=== PATIENT | male | born 1975 | race Caucasian/White ===

== ENCOUNTER 2017-07-23 16:20 | Emergency (ER) | payer OTHER ==
[2017-07-23 16:25] VITALS: BP 133/93; PULSE 85; TEMP 98.2; BMI 35.5
--- NOTE | 2017-07-23 16:25 | PDOC ---
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
[2017-07-23 16:43] LABS: PH,URINE 6.5 (5.0-8.0); URINE APPEARANCE CLEAR; URINE BILIRUBIN NEGATIVE (NEGATIVE); URINE BLOOD TRACE-LYSE (NEGATIVE); URINE COLOR LT. YELLOW; URINE GLUCOSE (UA) NEGATIVE (NEGATIVE); URINE KETONE NEGATIVE (NEGATIVE); URINE NITRITE NEGATIVE (NEGATIVE); URINE PROTEIN NEGATIVE (NEGATIVE); URINE UROBILINOGEN 0.2 mg/dL (0.2-1.0)
--- NOTE | 2017-07-23 17:25 | PDOC ---
History of Present Illness - General Chief Complaint: Back Pain Stated Complaint: PAIN, ACUTE Time Seen by Provider: 07/23/17 17:16 History Source: Patient Exam Limitations: No Limitations - History of Present Illness Initial Comments: 07/23/17 17:40 My chief complaint: left lateral lower back pain History of present illness: Patient is a 41-year-old male with no significant medical history here today Complaining of left lateral lower thoracic back pain that started yesterday after lifting something heavy at work and got worse today after stating something heavy at work. Patient denies any radiation of pain down the legs or any saddle anesthesia or weakness of legs or any foot drop or any incontinency. Patient did not take anything for pain today. Patient reports that pain is worse with lateral movement of the torso. Patient reports that pain currently is a 7 out of 10 aching in nature. Occurred: reports: yesterday Severity: reports: severe (left lateral back thoracic area ) Pain Location: reports: back (left lateral back lower thoracic ) Method of Injury: Yes: other (lifted something heavy at work ) Modifying Factors: improves with: None Loss of Consciousness: no loss of consciousness Associated Symptoms (Fall): other (left lateral back tenderness at lower thoracic level ) Past History - Past Medical History Allergies/Adverse Reactions: Allergies Allergy/AdvReac Type Severity Reaction Status Date / Time No Known Allergies Allergy Verified 07/23/17 16:21 COPD: No - Surgical History Appendectomy: Yes Cholecystectomy: Yes - Suicide/Smoking/Psychosocial Hx Smoking History: Current every day smoker Have you smoked in the past 12 months: Yes Number of Cigarettes Smoked Daily: 2 Information on smoking cessation initiated: Yes 'Breaking Loose' booklet given: 07/23/17 Hx Alcohol Use: No Drug/Substance Use Hx: No Substance Use Type: None Review of Systems - Review of Systems Able to Perform ROS?: Yes Constitutional: No: Symptoms Reported HEENTM: No: Symptoms Reported Respiratory: No: Symptoms reported Cardiac (ROS): No: Symptoms Reported ABD/GI: No: Symptoms Reported : No: Symptoms Reported Musculoskeletal: Yes: Back Pain (left lateral lower thoracic back tenderness ). No: Joint Swelling Integumentary: No: Symptoms Reported Neurological: No: Symptoms reported *Physical Exam - Vital Signs Last Vital Signs Temp Pulse Resp BP Pulse Ox 98.2 F 85 18 133/93 100 07/23/17 16:22 07/23/17 16:22 07/23/17 16:22 07/23/17 16:22 07/23/17 16:22 - Physical Exam General Appearance: Yes: Appropriately Dressed Respiratory/Chest: positive: Lungs Clear, Normal Breath Sounds. negative: Chest Tender, Respiratory Distress Cardiovascular: positive: Regular Rhythm, Regular Rate, S1, S2 Musculoskeletal: positive: Normal Inspection, Other (left lateral lower thoracic level tenderness). negative: CVA Tenderness, CVA Tenderness (R), CVA Tenderness (L), Decreased Range of Motion, Vertebral Tenderness Extremity: positive: Normal Capillary Refill, Normal Inspection, Normal Range of Motion Integumentary: positive: Normal Color Neurologic: positive: Alert, Normal Response, Motor Strength 5/5 (b/l legs ), Respond to painful stimul (b/l legs ), Responsive, Other (negative SLR b/l ). negative: Numbness, Sensory Deficit (b/l legs ) ED Treatment Course - ADDITIONAL ORDERS Additional order review: Laboratory Results 07/23/17 16:30 Urine Color Lt. yellow Urine Appearance Clear Urine pH 6.5 Ur Specific [place] 1.020 Urine Protein Negative Urine Glucose (UA) Negative Urine Ketones Negative Urine Blood Trace-lyse Urine Nitrite Negative Urine Bilirubin Negative Urine Urobilinogen 0.2 Medical Decision Making - Medical Decision Making 07/23/17 17:41 Patient is a 41-year-old male with no significant medical history here today Complaining of left lateral lower thoracic back pain that started yesterday after lifting something heavy at work and got worse today after stating something heavy at work. Patient denies any radiation of pain down the legs or any saddle anesthesia or weakness of legs or any foot drop or any incontinency. Patient did not take anything for pain today. Patient reports that pain is worse with lateral movement of the torso. Patient reports that pain currently is a 7 out of 10 aching in nature. Back pain left lateral lower thoracic area PLAN: toradol 60 mg IM now ibuprofen as directed by grocery clerk marking *DC/Admit/Observation/Transfer Diagnosis at time of Disposition: Left-sided back pain Qualifiers: Back pain location: thoracic back pain Chronicity: acute Qualified Code(s): M54.6 - Pain in thoracic spine - Discharge Dispostion Disposition: HOME Condition at time of disposition: Stable - Referrals Referrals: Kaushik Bautista MD [Staff Physician] - - Patient Instructions Additional Instructions: Follow-up with orthopedist of back pain continues Avoid lifting heavy items using your back use proper lifting technique as demonstrated in exam room Ibuprofen as needed as directed by grocery clerk marking for pain Return to emergency room if symptoms worsen any numbness of private area or legs or other symptoms develop Patient voiced understanding of discharge instructions and all questions were answered - Post Discharge Activity Forms/Work/School Notes: Back to Work
[2017-07-23] MEDS ORDERED: KETOROLAC TROMETHAMINE 60 MG/2 ML VIAL IM ONE (17:35)
[2017-07-23] MEDS ORDERED: KETOROLAC TROMETHAMINE 60 MG/2 ML VIAL ONE (17:40)
[2017-07-23 20:06] LABS: URINE LEUK ESTERASE Negative (NEGATIVE)
== END 2017-07-23 17:49 | disposition home or self-care (01) ==
LOC: JERFT 16:20
PROC: 3E0233Z Introduction of Anti-inflammatory into Muscle, Percutaneous Approach (ICD-10-PCS; principal; 2017-07-23)
DX: S29.8XXA Other specified injuries of thorax, initial encounter (principal); X50.0XXA Overexertion from strenuous movement or load, initial encounter; Y93.H3 Activity, building and construction; Y92.69 Other specified industrial and construction area as the place of occurrence of the external cause; Y99.0 Civilian activity done for income or pay
CPT/HCPCS: 81003; 96372; 99281-25

== ENCOUNTER 2018-08-28 08:51 | Emergency (ER) | payer OTHER ==
[2018-08-28 08:58] VITALS: BP 131/64; PULSE 61; TEMP 98.2; BMI 33.5
[2018-08-28] MEDS ORDERED: IBUPROFEN 600 MG TABLET (FP) PO ONE (10:03)
--- NOTE | 2018-08-28 10:08 | PDOC ---
History of Present Illness - History of Present Illness Initial Comments: The patient is a 42 year old male, with no significant PMH, who presents to the emergency department today complaining of intermittent right-sided testicular pain for 3 weeks. Patient reports he began experiencing intermittent testicular pain 3 weeks ago, without any specific trauma. Patient notes pain is exacerbated with palpation to the area, and ambulation occasionally triggers pain. He reports relief when taking Motrin. Patient states that his pain has gotten significantly worse the past two days, which prompted his visit to the ED today. The patient denies chest pain, shortness of breath, headache and dizziness. Denies fever, chills, nausea, vomit, diarrhea and constipation. Denies dysuria, frequency, urgency and hematuria. Allergies: NKA Past surgical history: Social history: No reported PCP: None reported 08/28/18 10:20 <Cierra Duran - Last Filed: 08/28/18 11:13> - General History Source: Patient Exam Limitations: No Limitations <Bill Macdonald - Last Filed: 08/28/18 12:17> - General Chief Complaint: Pain Stated Complaint: TESTICLE PAIN Time Seen by Provider: 08/28/18 09:20 Past History <Cierra Duran - Last Filed: 08/28/18 11:13> - Past Medical History COPD: No - Surgical History Appendectomy: Yes Cholecystectomy: Yes - Immunization History Immunization Up to Date: Yes - Suicide/Smoking/Psychosocial Hx Smoking History: Current every day smoker Have you smoked in the past 12 months: Yes Number of Cigarettes Smoked Daily: 1 Information on smoking cessation initiated: No 'Breaking Loose' booklet given: 07/23/17 Hx Alcohol Use: No Drug/Substance Use Hx: No Substance Use Type: None <Bill Macdonald - Last Filed: 08/28/18 12:17> - Past Medical History Allergies/Adverse Reactions: Allergies Allergy/AdvReac Type Severity Reaction Status Date / Time No Known Allergies Allergy Verified 08/28/18 08:54 Home Medications: Ambulatory Orders Ibuprofen 600 mg PO Q6H PRN #20 tablet 08/28/18 Review of Systems - Review of Systems Comments:: GENERAL/CONSTITUTIONAL: No fever or chills. No weakness. HEAD, EYES, EARS, NOSE AND THROAT: No change in vision. No ear pain or discharge. No sore throat. CARDIOVASCULAR: No chest pain or shortness of breath. RESPIRATORY: No cough, wheezing, or hemoptysis. GASTROINTESTINAL: No nausea, vomiting, diarrhea or constipation. GENITOURINARY: +Right-sided testicular pain. No dysuria, frequency, or change in urination. MUSCULOSKELETAL: No joint or muscle swelling or pain. No neck or back pain. SKIN: No rash NEUROLOGIC: No headache, vertigo, loss of consciousness, or change in strength/ sensation. ENDOCRINE: No increased thirst. No abnormal weight change. HEMATOLOGIC/LYMPHATIC: No anemia, easy bleeding, or history of blood clots. ALLERGIC/IMMUNOLOGIC: No hives or skin allergy. 08/28/18 10:20 <Cierra Duran - Last Filed: 08/28/18 11:13> *Physical Exam - Vital Signs Last Vital Signs Temp Pulse Resp BP Pulse Ox 98.2 F 61 16 131/64 98 08/28/18 08:55 08/28/18 08:55 08/28/18 08:55 08/28/18 08:55 08/28/18 08:55 - Physical Exam Comments: GENERAL: Awake, alert, and fully oriented, in no acute distress HEAD: No signs of trauma EYES: PERRLA, EOMI, sclera anicteric, conjunctiva clear ENT: Auricles normal inspection, hearing grossly normal, nares patent. Moist mucosa NECK: Normal ROM, supple, no lymphadenopathy, JVD, or masses ABDOMEN: Soft, nontender. No guarding, no rebound. No masses GENITOURINARY: +Uncircumsized penis with distended testicles. +Mild tenderness near the right epididymis. No penile lesions or rash. No drainage. No vesicular lesions. Cremasteric reflex intact. Vertical lie. EXTREMITIES: Normal range of motion, no edema. No clubbing or cyanosis. No cords, erythema, or tenderness NEUROLOGICAL: Cranial nerves II through XII grossly intact. Normal speech, normal gait SKIN: Warm, Dry, normal turgor, no rashes or lesions noted. 08/28/18 10:14 <Cierra Duran - Last Filed: 08/28/18 11:13> - Vital Signs Last Vital Signs Temp Pulse Resp BP Pulse Ox 98.2 F 61 16 131/64 98 08/28/18 08:55 08/28/18 08:55 08/28/18 08:55 08/28/18 08:55 08/28/18 08:55 <Bill Macdonald - Last Filed: 08/28/18 12:17> Moderate Sedation - Procedure Monitoring Vital Signs: Procedure Monitoring Vital Signs Temperature 98.2 F 08/28/18 08:55 Pulse Rate 61 08/28/18 08:55 Respiratory Rate 16 08/28/18 08:55 Blood Pressure 131/64 08/28/18 08:55 O2 Sat by Pulse Oximetry (%) 98 08/28/18 08:55 <Cierra Duran - Last Filed: 08/28/18 11:13> - Procedure Monitoring Vital Signs: Procedure Monitoring Vital Signs Temperature 98.2 F 08/28/18 08:55 Pulse Rate 61 08/28/18 08:55 Respiratory Rate 16 08/28/18 08:55 Blood Pressure 131/64 08/28/18 08:55 O2 Sat by Pulse Oximetry (%) 98 08/28/18 08:55 <Bill Macdonald - Last Filed: 08/28/18 12:17> ED Treatment Course - RADIOLOGY Radiograph Interpretation: EXAM#: TYPE/EXAM: RESULT: [id number] US/SCROTUM AND CONTENTS US HISTORY PROVIDED IMPRESSION: Small bilateral hydroceles and left-sided varicocele. No evidence of torsion or acute pathology. Reported By: Gus Blankenship MD 08/28/18 10:44 08/28/18 11:13 <Cierra Duran - Last Filed: 08/28/18 11:13> - RADIOLOGY Radiology Studies Ordered: Category Date Time Status SCROTUM AND CONTENTS US [US] Stat Ultrasound 08/28/18 10:03 Ordered <Bill Macdonald - Last Filed: 08/28/18 12:17> Medical Decision Making - Medical Decision Making 08/28/18 10:04 A portion of this note was written by my scribe, under my supervision. Vital Signs Temp Pulse Resp BP Pulse Ox 98.2 F 61 16 131/64 98 08/28/18 08:55 08/28/18 08:55 08/28/18 08:55 08/28/18 08:55 08/28/18 08:55 42 year old male c/ no PMH p/w right intermittent testicular pain x 3 weeks. The patient reported intermittent pain, worsened with palpation and occasionally ambulating worsens pain. Improved with motrin. However, last two days, has become increasingly gradually more worse. Denies abdominal pain, fevers, chills, dysuria, hematuria. The patient's physical exam demonstrates an uncircumsized male with no penile drainage or wounds or rashes, Right testicle with mild tenderness near the epidydmis, cremasteric reflex intact, and descended testicles. Will obtain ultrasound. I have low suspicion for torsion but do suspect epidymitis/orchitis. Pt is sexually active with only and no hx of STDs. Will obtain UA/UC and scrotal ultrasound. 08/28/18 11:46 UA: Urine Test Results Urine Color Dkyellow 08/28/18 11:12 Urine Appearance Clear 08/28/18 11:12 Urine pH 5.0 (5.0-8.0) D 08/28/18 11:12 Ur Specific [place] 1.028 (1.010-1.035) 08/28/18 11:12 Urine Protein Negative (NEGATIVE) 08/28/18 11:12 Urine Glucose (UA) Negative (NEGATIVE) 08/28/18 11:12 Urine Ketones Negative (NEGATIVE) 08/28/18 11:12 Urine Blood 1+ (NEGATIVE) H 08/28/18 11:12 Urine Nitrite Negative (NEGATIVE) 08/28/18 11:12 Urine Bilirubin Negative (<2.0 mg/dL) 08/28/18 11:12 Ur Leukocyte Esterase Negative (NEGATIVE) 08/28/18 11:12 Ultrasound shows: small bilateral hydroces and left-sided varicocele. No evidence of torsion or acute pathology. Small cyst measuring 6 mm within the head of the right epididymis. No significant epidymal abnormalities are identified. 08/28/18 12:13 Will refer patient out to urology for the cyst. Pt feels reassurred and will follow up with urology. I discussed the physical exam findings, ancillary test results and final diagnoses with the patient. I answered all of the patient's questions. The patient was satisfied with the care received and felt comfortable with the discharge plan and treatment plan. The patient will call their primary care physician within 24 hours to arrange follow-up and will return to the Emergency Department with any new, persistant or worsening symptoms. <Bill Macdonald - Last Filed: 08/28/18 12:17> *DC/Admit/Observation/Transfer - Attestations Scribe Attestion: 08/28/18 10:15 Documentation prepared by LESLIE Ovalles, acting as medical office technology instructor for Bill Macdonald MD. <Cierra Duran - Last Filed: 08/28/18 11:13> - Discharge Dispostion Decision to Admit order: No <Bill Macdonald - Last Filed: 08/28/18 12:17> Diagnosis at time of Disposition: Testicular cyst - Discharge Dispostion Disposition: HOME Condition at time of disposition: Stable - Prescriptions Prescriptions: Ibuprofen 600 mg PO Q6H PRN #20 tablet PRN Reason: Pain - Referrals Referrals: Moncho Pan MD [Staff Physician] - Quintin Chun MD [Staff Physician] - - Patient Instructions Printed Discharge Instructions: DI for Testicular Pain Additional Instructions: You have a small cyst on your right testicle. At this time, you can take 600 mg ibuprofen (motrin) every 6 hours as needed for pain. It is important that you follow up and make an appointment with a urologist. Call to schedule an appointment. Print Language: SPA
[2018-08-28 11:29] LABS: URINE APPEARANCE CLEAR; URINE BILIRUBIN NEGATIVE (<2.0 mg/dL); URINE COLOR DKYELLOW; URINE GLUCOSE (UA) NEGATIVE (NEGATIVE); URINE KETONE NEGATIVE (NEGATIVE); URINE LEUK ESTERASE NEGATIVE (NEGATIVE); URINE NITRITE NEGATIVE (NEGATIVE); URINE PROTEIN NEGATIVE (NEGATIVE); URINE UROBILINOGEN 4.0 E.U/dl mg/dL (0.2-1.0)
[2018-08-28 11:56] LABS: URINE MUCUS MANY
[2018-08-28] MEDS ORDERED: IBUPROFEN 400 MG TABLET (FP) PO ONE (12:07)
== END 2018-08-28 12:31 | disposition home or self-care (01) ==
LOC: JER 08:51
DX: N44.2 Benign cyst of testis (principal)
CPT/HCPCS: 76870-TC; 81003; 81015; 87086; 99281-25

== ENCOUNTER 2023-03-24 18:39 | Observation (INO) | payer OTHER ==
[2023-03-24 18:56] VITALS: BMI 43.9
[2023-03-24] MEDS ORDERED: ACETAMINOPHEN 1000 MG/100 ML BAG IVPB ONE (19:23)
[2023-03-24] MEDS ORDERED: SODIUM CHLORIDE 1,000 ML IV STA (19:23)
[2023-03-24] MEDS ORDERED: ACETAMINOPHEN INJECTION 100 ML IVPB ONE (19:40)
[2023-03-24 19:52] LABS: INR 1.21 (0.83-1.09); URINE APPEARANCE CLEAR; URINE BILIRUBIN NEGATIVE (NEGATIVE); URINE COLOR YELLOW; URINE GLUCOSE (UA) 3+ (NEGATIVE); URINE KETONE TRACE (NEGATIVE); URINE LEUK ESTERASE NEGATIVE (NEGATIVE); URINE NITRITE NEGATIVE (NEGATIVE); URINE PROTEIN NEGATIVE (NEGATIVE)
[2023-03-24 19:54] LABS: ACTIVATED PTT 31.7 SECONDS (25.2-36.5)
[2023-03-24 20:03] LABS: POTASSIUM 3.9 mmol/L (3.5-5.1)
[2023-03-24 20:06] LABS: CALCIUM 7.7 mg/dL (8.5-10.1)
[2023-03-24 20:07] LABS: ALBUMIN 3.5 g/dl (3.4-5.0); BLOOD UREA NITROGEN 9.7 mg/dL (7-18)
[2023-03-24 20:09] LABS: CREATININE 0.9 mg/dL (0.55-1.3)
[2023-03-24 20:10] LABS: MAGNESIUM 1.8 mg/dL (1.8-2.4)
[2023-03-24 20:11] LABS: BILIRUBIN,TOTAL 0.4 mg/dL (0.2-1); TOT PROT 6.5 g/dl (6.4-8.2)
[2023-03-24 20:42] LABS: BASO % 0.9 % (0-2.0); EOS % 2.8 % (0-4.5); HEMATOCRIT 41.9 % (35.4-49); HEMOGLOBIN 15.4 GM/dL (11.7-16.9); LYMPH % 30.5 % (8-40); MCHC 36.7 g/dl (32.0-35.9); MEAN CELL VOLUME 84.5 fl (80-96); MEAN PLT VOLUME 7.1 fl (7.5-11.1); MONO % 6.9 % (3.8-10.2); NEUT % 58.9 % (42.8-82.8); PLATELET COUNT 198 10^3/uL (134-434); RBC 4.95 M/mm3 (4.00-5.60); RDW 13.6 % (11.9-15.9); WHITE BLOOD COUNT 8.5 K/mm3 (4.0-10.0)
[2023-03-24] MEDS ORDERED: ASPIRIN 81 MG CHEWABLE TABLETS PO ONE (21:49)
[2023-03-24] MEDS ORDERED: ASPIRIN 81 MG CHEWABLE TABLETS ONE (21:57)
[2023-03-25] MEDS ORDERED: SIMETHICONE 80 MG TAB.CHEW (FP) PO PRN (00:04)
[2023-03-25] MEDS ORDERED: SIMETHICONE 80 MG TAB.CHEW (FP) ONE (00:42)
[2023-03-25] MEDS ORDERED: POLYETHYLENE GLYCOL (HEALTHYLAX) 3350 17 GM PACKET ONE (05:28)
[2023-03-25] MEDS ORDERED: POLYETHYLENE GLYCOL (HEALTHYLAX) 3350 17 GM PACKET PO SCH (06:00)
[2023-03-25] MEDS ORDERED: INSULIN SLIDING SCALE (NOVOLOG) 1 VIAL SQ SCH (07:00)
[2023-03-25 08:38] LABS: HEMATOCRIT 42.4 % (35.4-49); HEMOGLOBIN 15.2 GM/dL (11.7-16.9); MCH 31.1 pg (25.7-33.7); MCHC 35.7 g/dl (32.0-35.9); MEAN CELL VOLUME 86.9 fl (80-96); MEAN PLT VOLUME 7.4 fl (7.5-11.1); PLATELET COUNT 192 10^3/uL (134-434); RBC 4.88 M/mm3 (4.00-5.60); RDW 12.9 % (11.9-15.9); WHITE BLOOD COUNT 5.9 K/mm3 (4.0-10.0)
[2023-03-25] MEDS ORDERED: PANTOPRAZOLE 40 MG TABLET PO ONE (08:41)
[2023-03-25] MEDS ORDERED: ENOXAPARIN NA (PORCINE) 40 MG/0.4 ML DISP.SYRIN SQ ONE (08:41)
[2023-03-25 08:59] LABS: ALBUMIN 3.5 g/dl (3.4-5.0)
[2023-03-25 09:01] LABS: CREATININE 0.7 mg/dL (0.55-1.3)
[2023-03-25 09:02] LABS: PHOSPHOROUS 2.3 mg/dL (2.5-4.9)
[2023-03-25 09:03] LABS: BILIRUBIN,TOTAL 0.8 mg/dL (0.2-1); TOT PROT 6.6 g/dl (6.4-8.2)
[2023-03-25] MEDS ORDERED: ENOXAPARIN NA (PORCINE) 40 MG/0.4 ML DISP.SYRIN SQ SCH (10:00)
[2023-03-25] MEDS ORDERED: PANTOPRAZOLE 40 MG TABLET PO SCH (10:00)
[2023-03-25 10:05] VITALS: TEMP 98.7
[2023-03-25 11:35] VITALS: BP 131/100; PULSE 50
[2023-03-25 11:58] VITALS: RESP 18
== END 2023-03-25 11:58 | disposition home or self-care (01) ==
LOC: JER 18:39 → JERBED 22:26
PROVIDERS: ADMIT Internal Medicine; ATTEND Internal Medicine
PROC: 3E033NZ Introduction of Analgesics, Hypnotics, Sedatives into Peripheral Vein, Percutaneous Approach (ICD-10-PCS; principal; 2023-03-24)
PROC: 3E023GC Introduction of Other Therapeutic Substance into Muscle, Percutaneous Approach (ICD-10-PCS; 2023-03-24)
PROC: 3E013VG Introduction of Insulin into Subcutaneous Tissue, Percutaneous Approach (ICD-10-PCS; 2023-03-24)
PROC: 3E0337Z Introduction of Electrolytic and Water Balance Substance into Peripheral Vein, Percutaneous Approach (ICD-10-PCS; 2023-03-24)
DX: E11.65 Type 2 diabetes mellitus with hyperglycemia (principal); R94.31 Abnormal electrocardiogram [ECG] [EKG]; E66.01 Morbid (severe) obesity due to excess calories; Z68.41 Body mass index [BMI] 40.0-44.9, adult; Z72.0 Tobacco use; R20.8 Other disturbances of skin sensation; K21.9 Gastro-esophageal reflux disease without esophagitis; Z90.49 Acquired absence of other specified parts of digestive tract; R00.1 Bradycardia, unspecified; E83.51 Hypocalcemia; R10.13 Epigastric pain; K76.0 Fatty (change of) liver, not elsewhere classified
CPT/HCPCS: 36415; 74177-TC; 80053; 80061; 81003; 82150; 82306; 82962; 83036; 83605; 83690; 83735; 83970; 84100; 84439; 84443; 84484; 85025; 85027; 85610; 85730; 93005; 93010; 96361; 96372; 96374; 99285-25; G0378; Q9967

== ENCOUNTER 2024-02-14 18:49 | Emergency (ER) | payer OTHER ==
[2024-02-14 18:56] VITALS: BP 135/79; PULSE 76; RESP 18; TEMP 98.5; BMI 33.9
[2024-02-14] MEDS ORDERED: DEXAMETHASONE SOD PHOSPHATE 10 MG/1 ML VIAL ONE (19:35)
[2024-02-14] MEDS ORDERED: KETOROLAC TROMETHAMINE 30 MG/1 ML VIAL ONE (19:35)
[2024-02-14 19:40] LABS: BASO % 0.9 % (0-2.0); EOS % 1.9 % (0-4.5); HEMATOCRIT 43.1 % (35.4-49); HEMOGLOBIN 14.9 GM/dL (11.7-16.9); LYMPH % 25.8 % (8-40); MCH 30.5 pg (25.7-33.7); MCHC 34.6 g/dl (32.0-35.9); MEAN CELL VOLUME 88.1 fl (80-96); MEAN PLT VOLUME 6.6 fl (7.5-11.1); MONO % 7.9 % (3.8-10.2); NEUT % 63.5 % (42.8-82.8); PLATELET COUNT 162 10^3/uL (134-434); RBC 4.89 M/mm3 (4.00-5.60); RDW 13.5 % (11.9-15.9); WHITE BLOOD COUNT 5.9 K/mm3 (4.0-10.0)
[2024-02-14] MEDS: KETOROLAC TROMETHAMINE 30 MG/1 ML VIAL IVPUSH ONE (19:41)
[2024-02-14] MEDS: DEXAMETHASONE SOD PHOSPHATE 10 MG/1 ML VIAL IVPUSH ONE (19:41)
[2024-02-14] MEDS: SODIUM CHLORIDE 0.9% 500 ML INFUS.BAG IV ONE ×2 (19:41→20:22)
[2024-02-14 19:55] LABS: CHLORIDE 102 mmol/L (98-107); POTASSIUM 4.1 mmol/L (3.5-5.1); SODIUM 135 mmol/L (136-145)
[2024-02-14 19:57] LABS: CALCIUM 8.6 mg/dL (8.5-10.1)
[2024-02-14 19:58] LABS: ALBUMIN 3.6 g/dl (3.4-5.0); ANION GAP 4 mmol/L (4-13); BLOOD UREA NITROGEN 9.4 mg/dL (7-18); CO2 29 mmol/L (21-32)
[2024-02-14 20:01] LABS: CREATININE 0.9 mg/dL (0.55-1.3); SGOT/AST 28 U/L (15-37); SGPT/ALT 57 U/L (13-61)
[2024-02-14 20:03] LABS: BILIRUBIN,TOTAL 0.8 mg/dL (0.2-1); TOT PROT 6.4 g/dl (6.4-8.2)
[2024-02-14 20:04] LABS: ALK PHOS 126 U/L (45-117)
[2024-02-14 20:12] LABS: GLUCOSE,RANDOM 452 mg/dL (74-106)
== END 2024-02-14 21:38 | disposition home or self-care (01) ==
LOC: JER 18:49
PROC: 3E0333Z Introduction of Anti-inflammatory into Peripheral Vein, Percutaneous Approach (ICD-10-PCS; principal; 2024-02-14)
PROC: 3E033GC Introduction of Other Therapeutic Substance into Peripheral Vein, Percutaneous Approach (ICD-10-PCS; 2024-02-14)
DX: M54.41 Lumbago with sciatica, right side (principal); R73.9 Hyperglycemia, unspecified; M79.18 Myalgia, other site
CPT/HCPCS: 36415; 80053; 82962; 85025; 99284-25; J1100